=== PATIENT | female | born 1975 | race American Indian/Alaskan Native ===

== ENCOUNTER 2019-06-17 15:22 | Emergency (ER) | payer OTHER ==
--- NOTE | 2019-06-17 15:36 | Emergency Department Report ---
ED General Adult HPI - General Stated complaint: POSS CARBON MONOXIDE POISONING Time Seen by Provider: 06/17/19 15:31 Source: patient, EMS, RN notes reviewed Mode of arrival: Stretcher Limitations: No Limitations - History of Present Illness Initial comments: Patient is a 43-year-old female that presents from [facility] for medical clearance. Patient is under the care at [facility] for voluntary admission. Patient is admitted for acute psychosis and paranoia. Patient was sent here for evaluation of possible carbon monoxide poisoning. Patient has been in [facility] for 3 days. Patient was medically cleared prior to going into [facility]. Patient's family went to her house and believes there is carbon monoxide in her house. Patient denies chest pain. Patient denies shortness of breath. Patient denies difficulty breathing. Patient denies dizziness. Patient denies headache. Patient denies blurry vision. Patient denies any physical symptoms. -: Sudden - Related Data Allergies Allergy/AdvReac Type Severity Reaction Status Date / Time No Known Allergies Allergy Unverified 06/17/19 16:11 ED Review of Systems ROS: Stated complaint: POSS CARBON MONOXIDE POISONING Other details as noted in HPI Constitutional: denies: chills, fever Eyes: denies: eye pain, eye discharge, vision change ENT: denies: ear pain, throat pain Respiratory: denies: cough, shortness of breath, wheezing Cardiovascular: denies: chest pain, palpitations Endocrine: no symptoms reported Gastrointestinal: denies: abdominal pain, nausea, diarrhea Genitourinary: denies: urgency, dysuria, discharge Musculoskeletal: denies: back pain, joint swelling, arthralgia Skin: denies: rash, lesions Neurological: denies: headache, weakness, paresthesias Psychiatric: denies: anxiety, depression Hematological/Lymphatic: denies: easy bleeding, easy bruising ED Past Medical Hx - Past Medical History Previous Medical History?: Yes Hx Psychiatric Treatment: Yes - Surgical History Past Surgical History?: No - Family History Family history: no significant - Social History Smoking Status: Current Every Day Smoker Substance Use Type: None ED Physical Exam - General Limitations: No Limitations General appearance: alert, in no apparent distress - Head Head exam: Present: atraumatic, normocephalic - Eye Eye exam: Present: normal appearance - ENT ENT exam: Present: mucous membranes moist - Neck Neck exam: Present: normal inspection - Respiratory Respiratory exam: Present: normal lung sounds bilaterally. Absent: respiratory distress, wheezes, rales, rhonchi - Cardiovascular Cardiovascular Exam: Present: regular rate, normal rhythm. Absent: systolic murmur, diastolic murmur, rubs, gallop - GI/Abdominal GI/Abdominal exam: Present: soft, normal bowel sounds. Absent: distended, tenderness, guarding - Rectal Rectal exam: Present: deferred - Extremities Exam Extremities exam: Present: normal inspection, full ROM, normal capillary refill. Absent: tenderness, pedal edema, joint swelling, calf tenderness - Back Exam Back exam: Present: normal inspection, full ROM. Absent: tenderness, CVA tenderness (R), CVA tenderness (L), muscle spasm, paraspinal tenderness, vertebral tenderness - Neurological Exam Neurological exam: Present: alert, oriented X3 - Expanded Psychiatric Exam Expanded Focused psych exam: Present: paranoid, restlessness, flight of ideas, loose associations - Skin Skin exam: Present: warm, dry, intact, normal color. Absent: rash ED Course Vital Signs 06/17/19 16:03 Temperature 98.2 F Pulse Rate 102 H Respiratory 16 Rate Blood Pressure 135/90 O2 Sat by Pulse 97 Oximetry - Reevaluation(s) Reevaluation #1: I discussed all results with patient and sitter. Patient is medically cleared. Patient will be discharged from the ER and transferred back to [facility]. She given discharge instructions. Patient voiced understanding of discharge instructions. Sitter was also given discharge instructions. 06/17/19 19:10 ED Medical Decision Making - Lab Data Result diagrams: 06/17/19 16:20 06/17/19 16:20 - Medical Decision Making Patient is a 43-year-old female that presents emergency room for medical clearance. Patient was sent here by [facility] for medical clearance to a possible carbon monoxide poisoning. Patient's carbon monoxide level negative. Patient's labs unremarkable. Patient is medically cleared and will be transferred back to [facility] to continue her psychiatric therapy. Patient and staff member given discharge instructions. Both voiced understanding of discharge instructions. - Differential Diagnosis carbon monoxide poisoning. Medical clearance. Acute psychosis Critical care attestation.: If time is entered above; I have spent that time in minutes in the direct care of this critically ill patient, excluding procedure time. ED Disposition Clinical Impression: Medical clearance for psychiatric admission, Acute psychosis, Carbon monoxide exposure Disposition: [id number] PSY HOSP/PSY UNIT Is pt being admited?: No Does the pt Need Aspirin: No Condition: Stable Instructions: Carbon Monoxide Exposure (ED) Additional Instructions: Patient's carbon monoxide level negative. is medically cleared to be discharged from the ER and return back to behavioral health facility to continue her psychiatric treatment. Patient is stable for discharge. Patient is stable for psychiatric admission back at [facility]. Patient will be transferred back to [facility]. Patient to take Tylenol or ibuprofen when necessary for pain. Patient to return to ER if condition worsens. Patient increase water. Referrals: MARIAN ESPINO [Other] - 2-3 Days Time of Disposition: 17:18
[2019-06-17 16:10] VITALS: BP 135/90
[2019-06-17 17:01] LABS: Basophils % (Auto) 0.4 % (0.0-1.8); Eosinophils # (Auto) 0.1 K/mm3 (0.0-0.4); Eosinophils % (Auto) 0.9 % (0.0-4.3); Hematocrit 41.3 % (30.3-42.9); Hemoglobin 13.8 gm/dl (10.1-14.3); Lymphocytes # (Auto) 1.4 K/mm3 (1.2-5.4); Lymphocytes % (Auto) 15.5 % (13.4-35.0); Mean Corpuscular HGB Conc 34 % (30-34); Mean Corpuscular Volume 98 fl (79-97); Monocytes # (Auto) 0.9 K/mm3 (0.0-0.8); Monocytes % (Auto) 9.9 % (0.0-7.3); Platelet Count 456 K/mm3 (140-440); Red Blood Count 4.23 M/mm3 (3.65-5.03); Red Cell Distribution Width 14.2 % (13.2-15.2)
[2019-06-17 17:10] LABS: Alanine Aminotransferase 37 units/L (7-56); Albumin 4.7 g/dL (3.9-5); BUN/Creatinine Ratio 14; Blood Urea Nitrogen 11 mg/dL (7-17); Calcium 9.3 mg/dL (8.4-10.2); Hemolysis Index 25
== END 2019-06-17 20:00 ==
LOC: ED 15:22
DX: T58.91XA Toxic effect of carbon monoxide from unspecified source, accidental (unintentional), initial encounter (principal); F22 Delusional disorders; F17.200 Nicotine dependence, unspecified, uncomplicated; Y92.89 Other specified places as the place of occurrence of the external cause
CPT/HCPCS: 36415; 80053; 82375; 85025